=== PATIENT | female | born 1990 | race Caucasian/White ===

== ENCOUNTER 2017-01-31 15:08 | Emergency (ER) | payer BC, OTHER ==
[~2017-01-31] VITALS: Ht 157.5 cm; Wt 81.7 kg
[2017-01-31 15:45] LABS: ABSOLUTE NEUTROPHILS 6.9 thou/uL (1.4-8.2); BASOPHILS 0.3 % (0.0-2.0); EOSINOPHILS 0.9 % (0.0-3.0); HEMATOCRIT 42.1 % (37.0-47.0); LYMPHOCYTES 16.4 % (24.0-44.0); MCH 28.3 pg (26.0-34.0); MCHC 33.3 g/dL (28.0-37.0); MCV 84.9 fL (80.0-100.0); MONOCYTES 8.7 % (1.0-8.0); PLATELET COUNT 262 thou/uL (150-400); POLYS 73.7 % (36.0-66.0); RBC 4.96 mil/uL (4.20-5.00); RDW 13.4 % (10.5-14.5); WBC 9.4 thou/uL (4.0-11.0)
[2017-01-31 15:47] LABS: MANUAL DIFF NO
[2017-01-31 16:04] LABS: ANION GAP 10 mmol/L (7-16); BUN 10 mg/dL (7-18); CALCIUM 8.7 mg/dL (8.5-10.1); CHLORIDE 105 mmol/L (98-107); CO2 25 mmol/L (21-32); CREATININE 0.7 mg/dL (0.6-1.0); GLUCOSE 107 mg/dL (74-106); SODIUM 140 mmol/L (136-145)
[2017-01-31 16:18] LABS: URINE BILIRUBIN NEGATIVE (Negative); URINE BLOOD NEGATIVE (Negative); URINE COLOR YELLOW; URINE GLUCOSE-RANDOM* NEGATIVE (Negative); URINE KETONES NEGATIVE (Negative); URINE NITRITE NEGATIVE (Negative); URINE PROTEIN (DIPSTICK) NEGATIVE (Negative); URINE UROBILINOGEN 0.2 E.U./dl (0.2-1.0)
[2017-01-31 18:00] VITALS: BP 140/72
[2017-01-31] MEDS ORDERED: MEDROLDOSEPACK PO (18:27)
[2017-01-31] MEDS ORDERED: NAPROSYN500 MG PO (18:27)
[2017-01-31] MEDS ORDERED: HYDROCODONE-AP1 EAC6 PO (18:27)
== END 2017-01-31 22:26 ==
LOC: ER 15:08
PROVIDERS: Nurse Practitioner
DX: M25.452 Effusion, left hip (principal)